=== PATIENT | female | born 1955 | race Caucasian/White ===

== ENCOUNTER → 2016-12-23 | Outpatient (CLI) | payer BC ==
[2014-03-14 11:47] VITALS: BP 134/77
--- NOTE | 2016-12-23 15:12 | MG ---
HISTORY: SCREENING Comparison: October 02, 2015 FINDINGS: Bilateral CC and MLO projections of the right and left breast were obtained. Very dense fibroglandu lar tissue is seen to be present. There is a developing asymmetry within the central to slightly an terior right breast. Further evaluation spot-compression views recommended. If the asymmetry persist s, targeted sonography will be warranted. No significant architectural distortion, mass or clustered microcalcifications can be observed to suggest malignancy. No skin thickening or nipple retraction is appreciated. No pathological lymphadenopathy can be identified. Benign-appearing calcification s scattered throughout the right and left breasts are observed. IMPRESSION: 1. Developing asymmetry within the right breast as above for which spot compression views and possib le targeted sonography are recommended. ACR CATEGORY 0 - assessment incomplete; additional imaging needed Spot-compression views of the right breast recommended Diagnostic CAD was utilized and reviewed. * 0 (ZERO) - ASSESSMENT INCOMPLETE; ADDITIONAL IMAGING IS NEEDED. * / (ONE) - NEGATIVE. * 2/II (TWO) - BENIGN FINDINGS. * 3/III (THREE) - PROBABLY BENIGN FINDING; SHORT INTERVAL FOLLOW-UP SUGGESTED. * 4/IV (FOUR) - SUSPICIOUS ABNORMALITY; BIOPSY SHOULD BE CONSIDERED. * 5/V - HIGHLY SUSPICIOUS OF MALIGNANCY; BIOPSY SHOULD BE PERFORMED. A NEGATIVE X-RAY REPORT SHOULD NOT DELAY BIOPSY IF A DOMINANT OR CLINICALLY SUSPICIOUS MASS IS PRESENT; 4 TO 8 PERCENT OF CANCERS ARE NOT IDENTIFIED BY X-RAY. A NEG ATIVE REPORT MAY REINFORCE THE CLINICAL IMPRESSION. ADENOSIS AND DENSE BREASTS MAY OBSCURE AN UNDER LYING NEOPLASM. Reported By:
== END ==
LOC: RAD 08:33
PROVIDERS: ATTEND Internal Medicine
DX: Z12.31 Encounter for screening mammogram for malignant neoplasm of breast (principal)
CPT/HCPCS: 77067

== ENCOUNTER → 2017-01-19 | Outpatient (CLI) | payer BC ==
[2014-03-14 11:47] VITALS: BP 134/77
--- NOTE | 2017-01-19 15:02 | MG ---
Examination: Unilateral right diagnostic mammogram and right breast ultrasound. Clinical history: Abnormal screening mammogram. Technique: Additional digital images of the right breast were obtained. Targeted right breast ultras ound was also obtained evaluating the retroareolar region of the right breast. Comparison: 12/23/2016, 10/02/2015, 06/27/2014. Findings: The right breast is extremely dense, reducing the sensitivity of mammography. A focal density/asymmetry in the retroareolar region of the right breast seen on the recent screenin g mammogram, appears to efface on additional views and was likely due to summation artifact. Finding s appear stable when compared with the older mammograms. No suspicious mass, area of architectural distortion or suspicious cluster of microcalcifications is noted. Targeted right breast ultrasound evaluating the retroareolar region of the right breast reveals a sm all 4 mm oval, circumscribed, essentially anechoic mass in the retroareolar region of the right ke[address] st at the 11 o'clock position, approximately 2 cm from the nipple, which has no mammographic correla te and is consistent with a small benign cyst. An additional 4 mm circumscribed hypoechoic mass with some internal echoes and moderate posterior ac oustic enhancement is seen at the 7 o'clock position , approximately 2 cm from the nipple, consisten t with a complicated benign cyst. No suspicious cystic or solid mass is noted. Impression: 1. Benign cysts in the retroareolar region of the right breast, as described above. No mammographic or sonographic evidence of malignancy. BI-RADS category 2-benign findings. Recommend routine annual screening mammogram. Diagnostic CAD was utilized and reviewed. * 0 (ZERO) - ASSESSMENT INCOMPLETE; ADDITIONAL IMAGING IS NEEDED. * 0C - ASSESSMENT INCOMPLETE, NEEDS ADDITIONAL IMAGING EVALUATION AND/OR PRIOR MAMMOGRAMS FOR COMPAR NORY. * 1/ (ONE) - NEGATIVE. * 2/II (TWO) - BENIGN FINDINGS. * 3/III (THREE) - PROBABLY BENIGN FINDING; SHORT INTERVAL FOLLOW-UP SUGGESTED. * 4/IV (FOUR) - SUSPICIOUS ABNORMALITY; BIOPSY SHOULD BE CONSIDERED. * 5/V - HIGHLY SUSPICIOUS OF MALIGNANCY; BIOPSY SHOULD BE PERFORMED. * 6/ - KNOWN BIOPSY PROVEN MALIGNANCY-APPROPRIATE ACTION SHOULD BE TAKEN. A NEGATIVE X-RAY REPORT SHOULD NOT DELAY BIOPSY IF A DOMINANT OR CLINICALLY SUSPICIOUS MASS IS PRESENT; 4 TO 8 PERCENT OF CANCERS ARE NOT IDENTIFIED BY X-RAY. A NEGATIVE REPORT MAY REINFORCE THE CLINICAL IMPRESSION. ADENOSIS AND DENSE BREASTS MAY OBSCURE AN UNDERLYING NEOPLASM. Reported By:
== END ==
LOC: RAD 12:41
PROVIDERS: ATTEND Internal Medicine
DX: N64.59 Other signs and symptoms in breast (principal)
CPT/HCPCS: 76642; 77065